=== PATIENT | female | born 1970 | race Caucasian/White ===

== ENCOUNTER 2022-12-15 16:03 | Outpatient (CLI) | payer BC | END 2022-12-15 16:04 | disposition home or self-care (01) | LOC: SCSRAD 16:03 | PROVIDERS: ATTEND Nurse Practitioner Family | DX: S89.92XA Unspecified injury of left lower leg, initial encounter (principal) ==

== ENCOUNTER 2023-10-30 13:35 | Outpatient (CLI) | payer OTHER | END 2023-10-30 13:36 | disposition home or self-care (01) | LOC: SCSRAD 13:35 | PROVIDERS: ATTEND Nurse Practitioner Family | DX: M79.645 Pain in left finger(s) (principal) ==

== ENCOUNTER 2024-09-30 14:15 | Outpatient (CLI) | payer OTHER | END 2024-09-30 14:16 | disposition home or self-care (01) | LOC: SCSMRI 14:15 | PROVIDERS: ATTEND Orthopaedic Surgery Hand Surgery | DX: S69.92XA Unspecified injury of left wrist, hand and finger(s), initial encounter (principal); S63.408A Traumatic rupture of unspecified ligament of other finger at metacarpophalangeal and interphalangeal joint, initial encounter ==

== ENCOUNTER 2024-11-30 13:01 | Outpatient (CLI) | payer OTHER, BC ==
[2024-11-30 15:18] LABS: #Basophils 0.05 10x3/uL (0.0-0.2); %Basophils 0.7 % (0.0-1.0); %Eosinophils 0.8 % (0.0-10.0); %Lymphocytes 35.1 % (21.0-51.0); %Monocytes 7.8 % (0.0-10.0); %Neutrophils 55.3 % (42.0-75.0); Hematocrit 40.4 % (36.0-47.0); Hemoglobin 13.3 g/dL (12.0-16.0); Mean Corpuscular HGB CONC 32.9 g/dL (32.0-36.0); Mean Corpuscular Hemoglobin 31.4 pg (27.0-31.0); Mean Corpuscular Volume 95.5 fL (78.0-98.0); Mean Platelet Volume 10.7 fL (7.4-10.4); Platelet Count 286 10x3/uL (130-400); RBC Distribution Width 13.1 % (11.5-14.5); Red Blood Cell (RBC) Count 4.23 mill/uL (4.20-5.40)
[2024-11-30 15:35] LABS: PTT 28.1 sec (22.9-36.1)
[2024-11-30 15:38] LABS: Anion Gap 15 mmol/L (10-20); BUN (Urea Nitrogen) 18 mg/dL (9.8-20.1); Calc. Creatinine Clearance 0 mL/min (70-130); Calcium 9.6 mg/dL (7.8-10.44); Carbon Dioxide 26 mmol/L (22-29); Chloride 105 mmol/L (98-107); Estimated GFR 106; Glucose 89 mg/dL (70-105); Sodium 142 mmol/L (136-145)
[2024-11-30 15:41] LABS: ALT (SGPT) 43 U/L (Less than 34); AST (SGOT) 37 U/L (11-34); Albumin 4.1 g/dL (3.1-4.5); Alkaline Phosphatase 19 U/L (40-110); Bilirubin, Direct 0.2 mg/dL (0.1-0.3); Bilirubin, Total 0.7 mg/dL (0.3-1.2); Protein, Total 7.1 g/dL (6.0-8.3)
== END 2024-11-30 13:02 | disposition home or self-care (01) ==
LOC: LABBT 13:01
PROVIDERS: ATTEND Orthopaedic Surgery Hand Surgery
DX: Z01.818 Encounter for other preprocedural examination (principal); S69.92XA Unspecified injury of left wrist, hand and finger(s), initial encounter; S63.408A Traumatic rupture of unspecified ligament of other finger at metacarpophalangeal and interphalangeal joint, initial encounter; M24.50 Contracture, unspecified joint; M65.332 Trigger finger, left middle finger
CPT/HCPCS: 80048; 80076; 85025; 85610; 85730; 93005; 93010

== ENCOUNTER 2024-12-02 10:52 | Day surgery (SDC) | payer OTHER ==
[2024-12-02] MEDS ORDERED: Midazolam HCl 2 mg/2 ml Vial ONE (13:02)
[2024-12-02] MEDS ORDERED: fentaNYL 50 mcg/mL 1 mL Vial ONE (13:02)
[2024-12-02] MEDS ORDERED: Bupivacaine PF 0.5% 30 ML VIAL ONE ×2 (13:02→13:59)
[2024-12-02] MEDS ORDERED: Bupivacaine 0.25% HCL 30 ML VIAL ONE (13:02)
[2024-12-02] MEDS ORDERED: Betamet Acet/Betamet Na Ph 30 MG/5 ML VIAL ONE (13:59)
[2024-12-02] MEDS ORDERED: Sodium Chloride 0.9% 100 ML ONE (14:08)
[2024-12-02] MEDS ORDERED: CEFAZOLIN 2 GM VIAL ONE (14:08)
[2024-12-02] MEDS ORDERED: fentaNYL PF 100 MCG/2 ML SYRINGE ONE (14:18)
[2024-12-02] MEDS ORDERED: Dexamethasone 20 MG/5 ML VIAL ONE (14:26)
[2024-12-02] MEDS ORDERED: ePHEDrine Sulfate 50 MG/10 ML VIAL ONE (14:30)
[2024-12-02] MEDS ORDERED: PHENYLEPHRINE-NS 100 MCG/ML 10 ML SYRINGE ONE (14:35)
[2024-12-02] MEDS ORDERED: Bacitracin Zinc Ointment 30 gm TUBE ONE (15:40)
[2024-12-02] MEDS ORDERED: Ondansetron PF 4 MG/2 ML Vial ONE (15:44)
[2024-12-02] MEDS ORDERED: PROPOFOL 200 MG/20 ML VIAL ONE (15:44)
[2024-12-02] MEDS ORDERED: Lidocaine 1% PF 5 ML VIAL ONE (15:44)
[2024-12-02] MEDS ORDERED: Ketorolac Tromethamine 30 MG (1 mL) VIAL ONE (17:05)
== END 2024-12-02 17:50 | disposition home or self-care (01) ==
LOC: SDC 10:52
PROVIDERS: ATTEND Orthopaedic Surgery Hand Surgery
PROC: 3E0T3BZ Introduction of Anesthetic Agent into Peripheral Nerves and Plexi, Percutaneous Approach (ICD-10-PCS; principal; 2024-12-02)
PROC: 0LQ80ZZ Repair Left Hand Tendon, Open Approach (ICD-10-PCS; principal; 2024-12-02)
PROC: 0LN80ZZ Release Left Hand Tendon, Open Approach (ICD-10-PCS; principal; 2024-12-02)
PROC: 0MQ80ZZ Repair Left Hand Bursa and Ligament, Open Approach (ICD-10-PCS; principal; 2024-12-02)
DX: S63.413A Traumatic rupture of collateral ligament of left middle finger at metacarpophalangeal and interphalangeal joint, initial encounter (principal); M65.332 Trigger finger, left middle finger; M24.542 Contracture, left hand; E11.9 Type 2 diabetes mellitus without complications; E03.9 Hypothyroidism, unspecified; K76.0 Fatty (change of) liver, not elsewhere classified; Z78.0 Asymptomatic menopausal state; Z79.85 Long-term (current) use of injectable non-insulin antidiabetic drugs; X58.XXXA Exposure to other specified factors, initial encounter
CPT/HCPCS: A6223; C1713; C1894; J0665; J0702; J1100; J1885; J2250; J3010